=== PATIENT | female | born 1990 | race Caucasian/White ===

== ENCOUNTER 2021-07-27 12:45 | Emergency (ER) | payer MEDICAID ==
[~2021-07-27] VITALS: Ht 170.2 cm; Wt 83.5 kg
[2021-07-27 13:28] VITALS: BP 166/89
[2021-07-27] MEDS ORDERED: ACETAMINOPHEN EXTRA STRENGTH 500 MG TAB PO ONE (14:10)
[2021-07-27] MEDS ORDERED: PRED20TA5 PO (15:36)
[2021-07-27] MEDS ORDERED: PROM118S5 PO (15:36)
[2021-07-27] MEDS ORDERED: AZIT250T4 PO (15:36)
[2021-07-27] MEDS ORDERED: NAPR-54 PO (15:36)
--- NOTE | 2021-07-27 16:08 | NUR ---
pt swabbed for covid novel, sent to lab with eula lambert
[2021-07-27 16:09] VITALS: BP 166/89
--- NOTE | 2021-07-27 16:09 | NUR ---
Patient discharged with v/s stable. Written and verbal after care instructions given and explained. Patient alert, oriented and verbalized understanding of instructions. Ambulatory with to car. All questions addressed prior to discharge. ID band removed. Patient advised to follow up with PMD. Rx of azithromycin, naproxen, prednisone, promethazine(script) given. Patient educated on indication of medication including possible reaction and side effects. Opportunity to ask questions provided and answered.
== END 2021-07-27 16:09 | disposition home or self-care (01) ==
LOC: MED 12:45
DX: J02.9 Acute pharyngitis, unspecified (principal); Z20.822 Contact with and (suspected) exposure to COVID-19; R05.9 Cough, unspecified; J45.909 Unspecified asthma, uncomplicated; Z79.899 Other long term (current) drug therapy
CPT/HCPCS: 71045; 99284; Q0092; U0003